=== PATIENT | male | born 1985 | race Asian ===

== ENCOUNTER 2017-07-12 23:52 | Emergency (ER) | payer SELFPAY ==
[~2017-07-12] VITALS: Ht 170.2 cm; Wt 76.7 kg
[2017-07-13 00:22] LABS: BASOPHILS # (AUTO) 0.08 x10^3/uL (0-0.1); BASOPHILS % (AUTO) 1 % (0-1); EOSINOPHILS # (AUTO) 0.53 x10^3/uL (0-0.4); EOSINOPHILS % (AUTO) 5 % (1-7); LYMPHOCYTES # (AUTO) 3.66 x10^3/uL (1-3.4); LYMPHOCYTES % (AUTO) 35 % (22-44); MD NO; MEAN CORPUSCULAR HEMOGLOBIN 32.2 pg (27.5-34.5); MEAN CORPUSCULAR HGB CONC 34.4 g/dL (33.2-36.2); MEAN CORPUSCULAR VOLUME 93.6 fL (81-97); MEAN PLATELET VOLUME 7.5 fL (7.4-10.4); MONOCYTES # (AUTO) 0.64 x10^3/uL (0.2-0.8); MONOCYTES % (AUTO) 6 % (2-9); NEUTROPHILS # (AUTO) 5.56 x10^3/uL (1.8-6.8); NEUTROPHILS % (AUTO) 53 % (42-75); PLATELET COUNT 274 x10^3/uL (130-400); RED BLOOD COUNT 5.25 x10^6/uL (4.38-5.82); RED CELL DISTRIBUTION WIDTH 12.3 % (9.4-14.8)
[2017-07-13 00:32] LABS: ALANINE AMINOTRANSFERASE 28 U/L (12-78); ANION GAP 3 mmol/L (5-15); CALCIUM 8.6 mg/dL (8.5-10.1); CHLORIDE 109 mmol/L (98-107); CREATININE 1.43 mg/dL (0.7-1.3)
[2017-07-13 00:34] LABS: ALKALINE PHOSPHATASE 90 U/L (45-117); BILIRUBIN,TOTAL 0.5 mg/dL (0.2-1.0); TOTAL PROTEIN 7.7 g/dL (6.4-8.2)
[2017-07-13 00:41] LABS: MICROSCOPIC NOT IND
[2017-07-13 00:50] LABS: CULTURE INDICATED? NO
[2017-07-13] MEDS ORDERED: MORPHINE SULFATE 4 MG/ML, 1ML IVPush PRN (01:00)
[2017-07-13] MEDS ORDERED: MORPHINE SULFATE 4 MG/ML, 1ML ONE (01:00)
[2017-07-13 01:12] VITALS: BP 128/84
== END 2017-07-13 02:25 | disposition home or self-care (01) ==
LOC: ED 23:59
DX: R10.31 Right lower quadrant pain (principal)
CPT/HCPCS: 36415; 76857; 80053; 81003; 85025; 96374

== ENCOUNTER 2020-01-23 22:18 | Emergency (ER) | payer MEDICAID ==
[~2020-01-23] VITALS: Ht 180.3 cm; Wt 81.1 kg
[2020-01-23 23:47] VITALS: BP 122/86
== END 2020-01-23 23:48 | disposition home or self-care (01) ==
LOC: ED 23:20
DX: S09.90XA Unspecified injury of head, initial encounter (principal); F17.200 Nicotine dependence, unspecified, uncomplicated; X58.XXXA Exposure to other specified factors, initial encounter; Y93.89 Activity, other specified; Y92.89 Other specified places as the place of occurrence of the external cause; Y99.8 Other external cause status
CPT/HCPCS: 99282

== ENCOUNTER 2020-06-21 16:59 | Emergency (ER) | payer MEDICAID, OTHER ==
[~2020-06-21] VITALS: Ht 175.3 cm; Wt 90.0 kg
[~2020-06-21 16:59] MED LIST: ACET325T26 PO; ALLO300T PO; CARV3.1212 PO; INDO25CA22 PO; PRED5TAB PO
[2020-06-21 18:03] LABS: BASOPHILS % (AUTO) 1 % (0-1); EOSINOPHILS % (AUTO) 6 % (1-7); LYMPHOCYTES % (AUTO) 32 % (22-44); MD NO; MEAN CORPUSCULAR HEMOGLOBIN 32.9 pg (27.5-34.5); MEAN CORPUSCULAR HGB CONC 35.1 g/dL (33.2-36.2); MEAN PLATELET VOLUME 7.6 fL (7.4-10.4); MONOCYTES % (AUTO) 8 % (2-9); NEUTROPHILS % (AUTO) 54 % (42-75); PLATELET COUNT 228 x10^3/uL (130-400); RED BLOOD COUNT 4.99 x10^6/uL (4.38-5.82); RED CELL DISTRIBUTION WIDTH 12.9 % (9.4-14.8)
[2020-06-21 18:13] LABS: ALBUMIN 3.8 g/dL (3.4-5.0); CALCIUM 8.2 mg/dL (8.5-10.1); CHLORIDE 109 mmol/L (98-107)
[2020-06-21 18:19] LABS: TROPONIN I < 0.015 ng/mL (0.000-0.045)
[2020-06-21 18:31] LABS: ANION GAP 4 mmol/L (5-15)
--- NOTE | 2020-06-21 19:03 | NUR ---
REPORT TO VICENTE SOLANO.
--- NOTE | 2020-06-21 19:04 | NUR ---
RECEIVED REPORT FROM VICENTE STEWART TO ASSUME CARE OF PT. AT FOR IMAGING.
[2020-06-21 19:28] VITALS: BP 117/76
--- NOTE | 2020-06-21 19:28 | NUR ---
PT. UP FOR RECHECK BY [facility].
== END 2020-06-21 19:48 | disposition home or self-care (01) ==
LOC: ED 17:00
DX: R07.89 Other chest pain (principal); R00.0 Tachycardia, unspecified; I10 Essential (primary) hypertension; M10.9 Gout, unspecified; F17.200 Nicotine dependence, unspecified, uncomplicated
CPT/HCPCS: 36415; 71045; 80048; 82040; 84484; 85025; 93005; 99285

== ENCOUNTER → 2020-06-29 | Outpatient (CLI) | payer OTHER | END | disposition home or self-care (01) | LOC: RAD 09:04 → MERGE 09:04 | PROVIDERS: ATTEND Internal Medicine Endocrinology, Diabetes & Metabolism | DX: J34.2 Deviated nasal septum (principal); J32.2 Chronic ethmoidal sinusitis; A41.9 Sepsis, unspecified organism | CPT/HCPCS: 70486 ==

== ENCOUNTER 2020-07-01 15:23 | Emergency (ER) | payer OTHER ==
[~2020-07-01] VITALS: Ht 175.3 cm; Wt 92.3 kg
--- NOTE | 2020-07-01 15:30 | NUR ---
[facility] ONS[facility] L SIDED CHEST PAIN 10/22 AND SOB. PT WAS RECENTLY TREATED FOR SEPSIS R/T SINUS INFECTION; PICC LINE REMOVED YESTERDAY FROM [facility]. PER EMS, VSS, 12-LEAD UNREMARKABLE. PT ARRIVES TO ED A&OX4, IN MODERATE DISTRESS D/T PAIN. RR 28. COURT ADMINISTRATOR AT BS AT ALL TIMES.
[2020-07-01] MEDS ORDERED: MVI PO (15:34)
[2020-07-01] MEDS ORDERED: MELA3TAB31 PO (15:34)
[2020-07-01] MEDS ORDERED: ALLO300T PO (15:34)
[2020-07-01] MEDS ORDERED: CARV3.122 PO (15:34)
[2020-07-01] MEDS ORDERED: SODIUM CHLORIDE FLUSH 10ML SYR IVF ONE (16:00)
[2020-07-01 16:10] LABS: BASOPHILS % (AUTO) 1 % (0-1); EOSINOPHILS % (AUTO) 6 % (1-7); LYMPHOCYTES % (AUTO) 28 % (22-44); MD NO; MEAN CORPUSCULAR HEMOGLOBIN 33.2 pg (27.5-34.5); MEAN CORPUSCULAR HGB CONC 35.8 g/dL (33.2-36.2); MEAN PLATELET VOLUME 7.4 fL (7.4-10.4); MONOCYTES % (AUTO) 11 % (2-9); NEUTROPHILS % (AUTO) 55 % (42-75); PLATELET COUNT 209 x10^3/uL (130-400); RED BLOOD COUNT 4.88 x10^6/uL (4.38-5.82); RED CELL DISTRIBUTION WIDTH 13.2 % (9.4-14.8)
[2020-07-01 16:19] LABS: ALANINE AMINOTRANSFERASE 132 U/L (12-78); ALBUMIN 4.1 g/dL (3.4-5.0); ANION GAP 7 mmol/L (5-15); CALCIUM 9.1 mg/dL (8.5-10.1); CHLORIDE 104 mmol/L (98-107)
[2020-07-01 16:21] LABS: ALKALINE PHOSPHATASE 69 U/L (45-117); BILIRUBIN,TOTAL 0.6 mg/dL (0.2-1.0); TOTAL PROTEIN 7.8 g/dL (6.4-8.2)
[2020-07-01] MEDS ORDERED: OMNIPAQUE 350 MG/ML, 100ML BOTTLE ONE (17:16)
[2020-07-01 17:53] VITALS: BP 144/99
--- NOTE | 2020-07-01 17:53 | NUR ---
TASK RN: PT RESTING ON [employer] W/ SECURITY AT BEDSIDE. NADN. PEÑA.
== END 2020-07-01 18:13 | disposition home or self-care (01) ==
LOC: ED 15:34 → MERGE 15:34 → ED 18:13
DX: R07.89 Other chest pain (principal); R06.02 Shortness of breath; R94.31 Abnormal electrocardiogram [ECG] [EKG]; I10 Essential (primary) hypertension; M10.9 Gout, unspecified
CPT/HCPCS: 36415; 71275; 80053; 85025; 93005; 99285; Q9967